=== PATIENT | male | born 1955 | race African-American/Black ===

== ENCOUNTER 2023-07-22 14:45 | Emergency (ER) | payer OTHER, MEDICAID ==
[~2023-07-22] VITALS: Ht 167.6 cm; Wt 67.3 kg
[2023-07-22 16:02] VITALS: BP 142/96; PULSE 87; RESP 16; TEMP 98; O2SAT 95
[2023-07-22] MEDS ORDERED: cefTRIAXone SOD 1,000 MG VL ONE (16:09)
[2023-07-22] MEDS ORDERED: ACETAMINOPHEN 500 MG TAB PO ONE ×2 (16:09→16:15)
[2023-07-22] MEDS ORDERED: AZIT500T66 PO (16:12)
[2023-07-22] MEDS ORDERED: ACET-1304 PO (16:12)
[2023-07-22] MEDS ORDERED: cefTRIAXone SOD 1,000 MG VL IM ONE (16:15)
== END 2023-07-22 16:39 | disposition home or self-care (01) ==
LOC: ER 14:45
DX: J02.9 Acute pharyngitis, unspecified (principal); H66.91 Otitis media, unspecified, right ear; I10 Essential (primary) hypertension
CPT/HCPCS: 71046; 96372; 99283; J0696